=== PATIENT | male | born 2000 | race Caucasian/White ===

== ENCOUNTER 2019-01-13 15:59 | Emergency (ER) | payer OTHER ==
[~2019-01-13] VITALS: Ht 182.9 cm; Wt 56.7 kg
[2019-01-13 16:15] VITALS: Ht 182.9 cm; Wt 56.7 kg
[2019-01-13 17:01] LABS: BASOPHIL % 0.5 % (0-2); PLATELET COUNT 212 x10^3mcL (130-400)
[2019-01-13 17:03] LABS: CALCIUM 8.1 mg/dL (8.5-10.1); CARBON DIOXIDE 25.5 mmol/L (21-32); CHLORIDE SERUM 103 mmol/L (98-107); CREATININE SERUM 0.9 mg/dL (0.7-1.3); GFR1 > 60 mL/min; GLUCOSE SERUM 118 mg/dL (74-106); POTASSIUM SERUM 3.6 mmol/L (3.5-5.1); SODIUM SERUM 142 mmol/L (136-145)
[2019-01-13 17:13] LABS: microscopic required? YES; urine erythrocyte NEGATIVE (NEGATIVE)
[2019-01-13 17:16] LABS: ALBUMIN 4.1 g/dL (3.4-5.0); ALKALINE PHOSPHATASE 71 U/L (46-116); ALT/SGPT 15 U/L (16-63); AST/SGOT 9 U/L (15-37); BILIRUBIN TOTAL 0.54 mg/dL (0.20-1.00); FREE T4 2.12 ng/dL (0.76-1.46); TOTAL PROTEIN, SERUM 7.6 g/dL (6.4-8.2)
[2019-01-13 17:21] LABS: AMPHETAMINE QUAL UR NONE DETECTED (See below)
[2019-01-14 05:46] VITALS: BP 108/66
== END 2019-01-14 07:30 | disposition short-term general hospital (02) ==
LOC: ED 15:59
PROVIDERS: Emergency Medicine
DX: R11.10 Vomiting, unspecified (principal); T46.5X2A Poisoning by other antihypertensive drugs, intentional self-harm, initial encounter; F31.9 Bipolar disorder, unspecified; R45.851 Suicidal ideations; Y92.89 Other specified places as the place of occurrence of the external cause
CPT/HCPCS: 84439; G0480; J1200; J1630; J2060; J7030

== ENCOUNTER 2019-08-03 20:17 | Emergency (ER) | payer SELFPAY ==
[~2019-08-03] VITALS: Ht 185.4 cm; Wt 61.2 kg
[2019-08-03 20:21] VITALS: BP 134/77; Ht 185.4 cm; Wt 61.2 kg
== END 2019-08-03 21:10 | disposition home or self-care (01) ==
LOC: ED 20:17
DX: F41.9 Anxiety disorder, unspecified (principal); J02.9 Acute pharyngitis, unspecified

== ENCOUNTER 2019-09-06 23:55 | Emergency (ER) | payer OTHER | END 2019-09-07 00:05 | disposition other institution (70) | LOC: ED 23:55 | DX: Z02.89 Encounter for other administrative examinations (principal) ==

== ENCOUNTER 2019-09-06 23:55 | Emergency (ER) | payer SELFPAY ==
[~2019-09-06] VITALS: Ht 182.9 cm; Wt 63.5 kg
[2019-09-06 23:57] VITALS: BP 128/71; Ht 182.9 cm; Wt 63.5 kg
== END 2019-09-07 00:05 | disposition other institution (70) ==
LOC: ED 23:55
DX: S00.81XA Abrasion of other part of head, initial encounter (principal); X58.XXXA Exposure to other specified factors, initial encounter; Y93.89 Activity, other specified; Y92.89 Other specified places as the place of occurrence of the external cause; Y99.8 Other external cause status

== ENCOUNTER 2019-10-20 00:10 | Emergency (ER) | payer OTHER, SELFPAY ==
[~2019-10-20] VITALS: Ht 172.7 cm; Wt 68.0 kg
[2019-10-20 00:17] VITALS: Ht 172.7 cm; Wt 68.0 kg
[2019-10-20 00:56] LABS: BASOPHIL % 0.2 % (0-2); PLATELET COUNT 303 x10^3mcL (130-400); RED CELL DISTRIBUTION WIDTH 13.2 % (11.5-14.5)
[2019-10-20 01:08] LABS: ALBUMIN 4.9 g/dL (3.4-5.0); ALKALINE PHOSPHATASE 63 U/L (46-116); ALT/SGPT 28 U/L (16-63); AST/SGOT 16 U/L (15-37); BILIRUBIN TOTAL 1.31 mg/dL (0.20-1.00); CALCIUM 8.6 mg/dL (8.5-10.1); CHLORIDE SERUM 102 mmol/L (98-107); CREATININE SERUM 1.8 mg/dL (0.7-1.3); GFR1 52 mL/min; GLUCOSE SERUM 157 mg/dL (74-106); MAGNESIUM 2.6 mg/dL (1.8-2.4); POTASSIUM SERUM 3.3 mmol/L (3.5-5.1); SODIUM SERUM 141 mmol/L (136-145)
[2019-10-20 01:12] LABS: TOTAL PROTEIN, SERUM 8.9 g/dL (6.4-8.2)
[2019-10-20 01:15] LABS: CARBON DIOXIDE 9.8 mmol/L (21-32)
[2019-10-20 02:59] LABS: UA SPECIFIC GRAVITY >=1.030 (1.005-1.035); microscopic required? YES; urine erythrocyte 2+ (NEGATIVE)
[2019-10-20 03:07] LABS: AMPHETAMINE QUAL UR NONE DETECTED (See below)
[2019-10-20 04:08] VITALS: BP 120/54
[2019-10-20 04:52] LABS: APPEARANCE CSF CLEAR; COLOR CSF COLORLESS; RBC CSF 0 /cumm (0); WBC CSF 0 /cumm (0-5)
[2019-10-20 04:53] LABS: TOTAL PROTEIN CSF 24.7 mg/dL (15-45)
--- NOTE | 2019-10-20 05:25 | NUR ---
DECREASED FIO2 FROM 100% TO 50% POST ABG RESULTS. WILL CONTINUE TO MONITOR.
[2019-10-20 05:56] VITALS: BP 126/65
[2019-10-20 07:19] VITALS: BP 110/57
[2019-10-20 09:09] VITALS: BP 114/67
[2019-10-20 11:15] VITALS: BP 100/46
[2019-10-20 15:35] VITALS: BP 124/67
== END 2019-10-20 15:35 | disposition short-term general hospital (02) ==
LOC: ED 00:10
PROVIDERS: Specialist
DX: T46.5X2A Poisoning by other antihypertensive drugs, intentional self-harm, initial encounter (principal); G40.501 Epileptic seizures related to external causes, not intractable, with status epilepticus; Y92.89 Other specified places as the place of occurrence of the external cause
CPT/HCPCS: 36600; 85378; G0480; J0133; J0696; J1953; J2060; J2704; J3370; J3475; J3490; Q0092; U0003-CS

== ENCOUNTER 2019-10-31 20:32 | Emergency (ER) | payer OTHER ==
[~2019-10-31] VITALS: Ht 182.9 cm; Wt 72.6 kg
[2019-10-31 20:37] VITALS: Ht 182.9 cm; Wt 72.6 kg
[2019-10-31 21:04] LABS: CALCIUM 9.1 mg/dL (8.5-10.1); CARBON DIOXIDE 25.7 mmol/L (21-32); CHLORIDE SERUM 104 mmol/L (98-107); CREATININE SERUM 0.9 mg/dL (0.7-1.3); GFR1 > 60 mL/min; GLUCOSE SERUM 99 mg/dL (74-106); POTASSIUM SERUM 3.2 mmol/L (3.5-5.1); SODIUM SERUM 138 mmol/L (136-145)
[2019-10-31 21:07] LABS: BASOPHIL % 0.3 % (0-2); PLATELET COUNT 254 x10^3mcL (130-400); RED CELL DISTRIBUTION WIDTH 13.3 % (11.5-14.5)
[2019-10-31 21:20] LABS: ALBUMIN 4.1 g/dL (3.4-5.0); ALKALINE PHOSPHATASE 66 U/L (46-116); ALT/SGPT 33 U/L (16-63); AST/SGOT 10 U/L (15-37); BILIRUBIN TOTAL 0.37 mg/dL (0.20-1.00); T4(THYROXINE) 5.8 ug/dL (4.7-13.3); TOTAL PROTEIN, SERUM 7.5 g/dL (6.4-8.2)
[2019-10-31 23:15] LABS: AMPHETAMINE QUAL UR NONE DETECTED (See below)
[2019-11-01 08:23] VITALS: BP 120/79
== END 2019-11-01 08:23 | disposition short-term general hospital (02) ==
LOC: ED 20:32
PROVIDERS: Emergency Medicine
DX: F32.9 Major depressive disorder, single episode, unspecified (principal); R45.851 Suicidal ideations; E87.6 Hypokalemia
CPT/HCPCS: 36415; G0480